=== PATIENT | male | born 1995 | race Two or more races ===

== ENCOUNTER 2022-02-22 11:10 | Emergency (ER) | payer MEDICAID ==
[~2022-02-22] VITALS: Ht 172.7 cm; Wt 79.3 kg
[2022-02-22] MEDS ORDERED: ACETAMINOPHEN 500 MG TAB PO ONE (12:30)
[2022-02-22 12:39] VITALS: BP 138/82
== END 2022-02-22 12:41 | disposition home or self-care (01) ==
LOC: ER 11:13
DX: B34.9 Viral infection, unspecified (principal); Z20.822 Contact with and (suspected) exposure to COVID-19
CPT/HCPCS: 36415; 87426; 87804